=== PATIENT | male | born 1960 | race Caucasian/White ===

== ENCOUNTER → 2018-01-27 12:05 | Outpatient (CLI) | payer MEDICARE, MEDICAID, OTHER, SELFPAY ==
--- NOTE | 2018-01-27 | DI.MRI.S_ITS ---
PROCEDURE: MR LUMBAR SPINE WO CON INDICATIONS: LOW BACK PAIN TECHNIQUE: Noncontrast sagittal T1 spin echo and T2 fast echo, coronal T2, sagittal STIR, axial T1 and T2 fast spin echo through the lumbar spine. In cases with scoliosis, additional coronal T2 fast spin echo may be performed. COMPARISON: [facility], , L-SPINE WITHOUT CONTRAST, 10/31/2013, 11:33. [facility], CR, XR LUMBAR SPINE WITH OLBIQUES PLUS FLEXION EXTENSION, 01/18/2018, 15:36. FINDINGS: Image quality: Excellent. Alignment and Curvature: There are 5 lumbar-type vertebral bodies by plain film. There is mild rightward curvature of the lower lumbar spine. Bone Marrow: Marrow is of normal overall signal. No acute vertebral body compression fractures. There is increased, moderate reactive signal within the endplates adjacent to the L2-L3 and L4-L5 intervertebral discs. Increased, mild reactive signal within the endplates adjacent to the T12-L1, L1-L2, L3-L4, and L5-S1 intervertebral discs. Spinal Cord: Conus medullaris terminates at the mid L1 level. Visualized cord demonstrates normal signal and size. Paraspinous Soft Tissues: No paravertebral masses. L1-L2: Moderate disc desiccation. Mild disc height loss. Mild diffuse disc bulge. Mild bilateral facet hypertrophy. Mild canal stenosis and mild bilateral foraminal stenoses are unchanged. L2-L3: Moderate disc height loss and desiccation. Mild diffuse disc bulge with superimposed broad-based right far lateral protrusion. Mild bilateral facet and ligamentum flavum hypertrophy. Mild epidural lipomatosis. There is increased, severe canal stenosis. There is increased, moderate right and mild left foraminal stenosis. L3-L4: Mild disc height loss. Moderate disc desiccation. Mild diffuse disc bulge/osteophyte. Mild bilateral facet and ligamentum flavum hypertrophy. Mild epidural lipomatosis. Increased, severe canal stenosis. Increased, [id number] bilateral foraminal stenosis. L4-L5: Moderate disc desiccation. Mild diffuse disc bulge/osteophyte with small superimposed broad-based left far lateral protrusion. Moderate bilateral facet hypertrophy. Mild epidural lipomatosis. Increased, mild canal stenosis. Increased, moderate left and mild right foraminal stenosis. L5-S1: Moderate disc height loss and desiccation. Mild diffuse disc bulge. Mild bilateral facet and ligamentum flavum hypertrophy. Mild canal stenosis. Increased, severe bilateral foraminal stenosis with bilateral intraforaminal L5 nerve root flattening. IMPRESSION: 1. Multilevel degenerative disc and facet disease, as well as ligamentum flavum hypertrophy and epidural lipomatosis. 2. Increased severe canal stenoses at L2-L3 and L3-L4. 3. Multilevel foraminal stenoses, worst at L5-S1 bilaterally, where there is bilateral L5 nerve root flattening. Recommend correlation with clinical symptoms to ascertain relevance of this finding. Dictated by: Lazaro Bales M.D. on 01/27/2018 at 13:45 Approved by: Lazaro Bales M.D. on 01/27/2018 at 13:50
== END ==
PROVIDERS: PCP Internal Medicine; Visit Provider Physical Medicine & Rehabilitation Pain Medicine
DX: M54.5 Low back pain (principal); M51.36 Other intervertebral disc degeneration, lumbar region; M51.37 Other intervertebral disc degeneration, lumbosacral region; M48.061 Spinal stenosis, lumbar region without neurogenic claudication; M48.07 Spinal stenosis, lumbosacral region; E88.2 Lipomatosis, not elsewhere classified
CPT/HCPCS: 72148

== ENCOUNTER 2018-06-14 12:00 | Outpatient (RCR) | payer MEDICARE, MEDICAID, OTHER, SELFPAY ==
--- NOTE | 2018-03-22 15:23 | PT.OIE ---
Current Diagnoses Spinal stenosis, lumbar region with neurogenic claudication (03/21/18) Other intervertebral disc degeneration, lumbar region (03/21/18) Radiculopathy, lumbosacral region (03/21/18) Provider Visit Care Team Role Provider Type Eneida Braden MD Primary Care Provider Physician Specialty: Internal Medicine Address: [address] [place] [address], [id number] Email: Antony Yepez MD Attending Provider Physician Specialty: Physical Medicine and Rehab Address: [address] [place] [address], [id number] Email: Physical Therapy Initial Evaluation PT-OP-A Visit Information Start: 03/22/18 14:52 Freq: Status: Active Protocol: Document 03/21/18 13:00 [facility] (Rec: 03/22/18 15:22 [facility] [email or web address]) Out-Patient Physical Therapy Visit Information Visit Information Visit Type Initial Evaluation Visit Note 57 year old male with chronic history of back pain that pt reports started when he was 40 years old with insidiuos onset and heavy manual labor. Currently he rates his pain as 5/10 with radiating pain downt he left LE to his knee Visit Start Time 13:00 Visit Stop Time 13:45 Total Visit Minutes 45 Visit Number 1 Evaluation Information Evaluation Date 03/21/18 PT-OP-B Current Condition Start: 03/22/18 14:52 Freq: Status: Active Protocol: Document 03/21/18 13:00 [facility] (Rec: 03/22/18 15:22 [facility] [email or web address]) Current Condition History of Current Condition Onset Date age 40 Current Complaints LBP and left sided leg pain to the knee History of Current Condition 57 year old male with chronic history of back pain that pt reports started when he was 40 years old with insidiuos onset and heavy manual labor. Currently he rates his pain as 5/10 with radiating pain downt he left LE to his knee. Tavares has a history of congestive heart failure, depression, dizziness, hernia, shortness of breath. He is currently a smoker. He is not currently working Prior Treatments and Tests MRI and X-rays have been taken showing Lumbar degenerative disc disease, lumbosacral radiculopathy, spinal stenosis of lumbar region with neurogenic claudication Treatment Goals Patient/Caregiver Goals to reduce pain levels Prior Functional Status Baseline Function- ADL's Independent Baseline Function- Mobility Independent Baseline Function- Other pain is increased with walking and prevents him from walking lntermediate distances, pain prevents Tavares from sitting greater than 1 hour Current Functional Impairments (Reported) Functional Limitations- Mobility/Gait pain with walking intermediate distances Functional Limitations- Recreation/ unable to continue with Hobbies martial arts, Functional Limitations- Other sitting increases pain PT-OP-F Manual Assessment Start: 03/22/18 14:52 Freq: Status: Active Protocol: Document 03/21/18 13:00 [facility] (Rec: 03/22/18 15:22 [facility] [email or web address]) Manual Assessments Soft Tissue Assessment Soft Tissue Mobility Assessment lumbar paraspinal guarding and muscle spasm left greater than right piriformis tightness PT-OP-J Posture/Palpation/Skin Start: 03/22/18 14:52 Freq: Status: Active Protocol: Document 03/21/18 13:00 [facility] (Rec: 03/22/18 15:22 [facility] [email or web address]) Posture Evaluation Position Standing Evaluation View Posterior Comments Posture Comments The patient stands with a forward lean and is shifted to the left in standing, he has visable muscle guarding in his lumbar paraspinals in standing Palpation Assessment Location Two Palpation Location piriformis Palpation Findings Soft Tissue Tightness Spasm Tenderness Palpation Details Left greater than right piriformis tightness and spasm One Palpation Location low back paraspinals Palpation Findings Soft Tissue Tightness Spasm Muscle Guarding Tenderness PT-OP-K Range of Motion Start: 03/22/18 14:52 Freq: Status: Active Protocol: Document 03/21/18 13:00 [facility] (Rec: 03/22/18 15:22 [facility] [email or web address]) Lumbar Spine Range of Motion Lumbar Spine Active Testing Position Standing Flexion 80 Extension 5 Rotation Left 20 Rotation Right 25 Lateral Flexion Left 10 Lateral Flexion Right 15 ROM Limitations Soft Tissue Tightness Pain Comments extension increases c/o pain PT-OP-L Special Tests Start: 03/22/18 14:52 Freq: Status: Active Protocol: Document 03/21/18 13:00 [facility] (Rec: 03/22/18 15:22 [facility] [email or web address]) Special Tests Neural Special Tests- Lower Body Other- 1 Test Results + SLump test L Sciatic Nerve Tension Test Results SLR + Comments + SLR test L PT-OP-M Strength Start: 03/22/18 15:22 Freq: Status: Active Protocol: Document 03/22/18 15:22 [facility] (Rec: 03/22/18 15:23 [facility] [email or web address]) Trunk Strength Trunk Manual Muscle Testing Core Stabilization decreased ability to activate the core musculature, + ASLR test Hip Strength Hip Manual Muscle Testing Right Abduction 4 Good Left Abduction 4 Good PT-OP-Q Treatments Start: 03/22/18 14:52 Freq: Status: Active Protocol: Document 03/21/18 13:00 [facility] (Rec: 03/22/18 15:22 [facility] [email or web address]) Therapeutic Exercises Supine Exercises 1 Supine Exercise Name pt given a home program of SKTC, Hamstring stretch, figure 4 stretch Other Exercises 1 Other Exercise Name jag pose PT-OP-T Assessment and Plan Start: 03/22/18 14:52 Freq: Status: Active Protocol: Document 03/21/18 13:00 [facility] (Rec: 03/22/18 15:22 [facility] [email or web address]) Physical Therapy Assessment Rehab Potential Rehabilitation Potential Fair Evaluation Complexity Number of Personal Factors/Comorbidities 0 Number of Body Systems Impaired 1-2 Clinical Presentation at Evaluation Stable Impairments Impairments Activity Tolerance Functional Activities Functional Mobility Gait Pain Posture ROM Soft Tissue Mobility Strength Tone Goals Four Impairment poor postural habits contributing to LBP Short Term Goal (STG) Tavares is educated on postural positioning that will decrease strain to the low back STG Duration 6 weeks Three Impairment + neurological tests (+ slump, + SLR L) Skilled Nursing Goal (LTG) Tavares reports decreased c/o radicular symptoms down his leg, he has a negative slump and SLR LTG Duration 8 weeks Two Impairment LBP and left sided leg pain rated 5/10 Skilled Nursing Goal (LTG) With a home exercise program and a course of Physical therapy Tavares is able to reduce his pain by 2-3 points on the pain scale LTG Duration 8 weeks One Impairment Tavares lacks a home exercise program for spinal health Short Term Goal (STG) Tavares is educated in a home flexibility program and stabilization program for the lumbar spine STG Duration 6 weeks Assessment Summary Assessment Tavares presents to physical therapy today with signs and symptoms of LBP and left LE radicular symptoms. He is a smoker and wore his sunglasses the full treatment so it was difficult to get a sense of when pain was increased with tests. He had pain reproduced with mosts test performed today. He did have + slump and + SLR test on the left. He stands in a forward lean position and is shifted to the left. He is weak in his core musculature and has tightness of the hip muscles, especially the piriformis and hamstrings. He needed to take frequent breaks during the evaluation as he noted he needed to rest and was short of breath. He was seen for a evaluation only today per his insurance. His treatment will include HEP, ROM and stretching exercises, and strengthening exercises. Physical Therapy Plan Frequency and Duration Frequency of Treatment 2x/Week Duration of Treatment 8 Plan of Care Start Date 03/21/18 Plan of Care End Date 05/16/18 Therapeutic Interventions Therapeutic Interventions Home Exercise Program Neuromuscular Re-education Self-Care/Home Management Therapeutic Exercises
--- NOTE | 2018-04-13 12:47 | PT.OTN ---
Current Diagnoses Spinal stenosis, lumbar region with neurogenic claudication (04/13/18) Other intervertebral disc degeneration, lumbar region (04/13/18) Radiculopathy, lumbosacral region (04/13/18) Physical Therapy Treatment Note PT-OP-A Visit Information Start: 03/22/18 14:52 Freq: Status: Active Protocol: Document 04/13/18 12:00 DCW (Rec: 04/13/18 12:46 DCW [id number]) Out-Patient Physical Therapy Visit Information Visit Information Visit Type Treatment Note Visit Start Time 12:00 Visit Stop Time 12:45 Total Visit Minutes 45 Visit Number 2 Number of [employer] Visits 0 Evaluation Information Evaluation Date 03/21/18 PT-OP-B Current Condition Start: 03/22/18 14:52 Freq: Status: Active Protocol: Document 03/21/18 13:00 AM[facility] (Rec: 03/22/18 15:22 [facility] [email or web address]) Current Condition History of Current Condition Onset Date age 40 Current Complaints LBP and left sided leg pain to the knee History of Current Condition 57 year old male with chronic history of back pain that pt reports started when he was 40 years old with insidiuos onset and heavy manual labor. Currently he rates his pain as 5/10 with radiating pain downt he left LE to his knee. Tavares has a history of congestive heart failure, depression, dizziness, hernia, shortness of breath. He is currently a smoker. He is not currently working Prior Treatments and Tests MRI and X-rays have been taken showing Lumbar degenerative disc disease, lumbosacral radiculopathy, spinal stenosis of lumbar region with neurogenic claudication Treatment Goals Patient/Caregiver Goals to reduce pain levels Prior Functional Status Baseline Function- ADL's Independent Baseline Function- Mobility Independent Baseline Function- Other pain is increased with walking and prevents him from walking lntermediate distances, pain prevents Tavares from sitting greater than 1 hour Current Functional Impairments (Reported) Functional Limitations- Mobility/Gait pain with walking intermediate distances Functional Limitations- Recreation/ unable to continue with Hobbies martial arts, Functional Limitations- Other sitting increases pain PT-OP-C Subjective Start: 03/22/18 14:52 Freq: Status: Active Protocol: Document 04/13/18 12:00 DCW (Rec: 04/13/18 12:46 DCW [id number]) OP-PT Subjective Patient Comments Patient Comments Pt reports his back hurts all the time, and everything makes it worse. PT-OP-F Manual Assessment Start: 03/22/18 14:52 Freq: Status: Active Protocol: Document 03/21/18 13:00 [facility] (Rec: 03/22/18 15:22 [facility] [email or web address]) Manual Assessments Soft Tissue Assessment Soft Tissue Mobility Assessment lumbar paraspinal guarding and muscle spasm left greater than right piriformis tightness PT-OP-J Posture/Palpation/Skin Start: 03/22/18 14:52 Freq: Status: Active Protocol: Document 03/21/18 13:00 AMH (Rec: 03/22/18 15:22 [facility] [email or web address]) Posture Evaluation Position Standing Evaluation View Posterior Comments Posture Comments The patient stands with a forward lean and is shifted to the left in standing, he has visable muscle guarding in his lumbar paraspinals in standing Palpation Assessment Location Two Palpation Location piriformis Palpation Findings Soft Tissue Tightness Spasm Tenderness Palpation Details Left greater than right piriformis tightness and spasm One Palpation Location low back paraspinals Palpation Findings Soft Tissue Tightness Spasm Muscle Guarding Tenderness PT-OP-K Range of Motion Start: 03/22/18 14:52 Freq: Status: Active Protocol: Document 03/21/18 13:00 AMH (Rec: 03/22/18 15:22 [facility] [email or web address]) Lumbar Spine Range of Motion Lumbar Spine Active Testing Position Standing Flexion 80 Extension 5 Rotation Left 20 Rotation Right 25 Lateral Flexion Left 10 Lateral Flexion Right 15 ROM Limitations Soft Tissue Tightness Pain Comments extension increases c/o pain PT-OP-L Special Tests Start: 03/22/18 14:52 Freq: Status: Active Protocol: Document 03/21/18 13:00 AMH (Rec: 03/22/18 15:22 [facility] [email or web address]) Special Tests Neural Special Tests- Lower Body Other- 1 Test Results + SLump test L Sciatic Nerve Tension Test Results SLR + Comments + SLR test L PT-OP-M Strength Start: 03/22/18 15:22 Freq: Status: Active Protocol: Document 03/22/18 15:22 AM[facility] (Rec: 03/22/18 15:23 [facility] [email or web address]) Trunk Strength Trunk Manual Muscle Testing Core Stabilization decreased ability to activate the core musculature, + ASLR test Hip Strength Hip Manual Muscle Testing Right Abduction 4 Good Left Abduction 4 Good PT-OP-Q Treatments Start: 03/22/18 14:52 Freq: Status: Active Protocol: Document 04/13/18 12:00 DCW (Rec: 04/13/18 12:46 DCW [id number]) Cardio Equipment Recumbent Bicycle Duration (Minutes) 5 Resistance 3 Seat Position 10 Gym Equipment Therapeutic Ball Trunk Rotation Exercise Details Lumbar trunk rotation Ball Size/Color Green - 65 cm Body Position Sitting Therapeutic Exercises Supine Exercises PPT /c TrA activation Supine Exercise Name PPT /c TrA activation Reps/Minutes 5 hold PPT /c SLR Supine Exercise Name PPT /c SLR Comments stopped due to back pain PPT /c Marching Supine Exercise Name PPT /c Marching 1 Supine Exercise Name Single KtC, HS stretch, Figure -4 Manual Therapy Treatment Soft Tissue Mobilization Quadratus Lumborum Body Location Bilateral QL Mobilization Type Strumming Sustained Pressure Trigger Point Release Body Position Prone Lumbar Paraspinals Body Location Bilateral Lumbar Paraspinals Mobilization Type Strumming Sustained Pressure Trigger Point Release Body Position Prone PT-OP-R Modalities Start: 03/22/18 14:52 Freq: Status: Active Protocol: Document 04/13/18 12:00 DCW (Rec: 04/13/18 12:46 DCW [id number]) Electric Stimulation Electric Stimulation Interferential Current (IFC) Body Location Lumbar Spine Duration (Minutes) 15 Patient Position Sidelying PT-OP-T Assessment and Plan Start: 03/22/18 14:52 Freq: Status: Active Protocol: Document 04/13/18 12:00 DCW (Rec: 04/13/18 12:46 DCW [id number]) Physical Therapy Assessment Impairments Impairments Activity Tolerance Functional Activities Functional Mobility Gait Pain Posture ROM Soft Tissue Mobility Strength Tone Goals Four Impairment poor postural habits contributing to LBP Short Term Goal (STG) Tavares is educated on postural positioning that will decrease strain to the low back STG Duration 6 weeks Three Impairment + neurological tests (+ slump, + SLR L) Prison Goal (LTG) Tavares reports decreased c/o radicular symptoms down his leg, he has a negative slump and SLR LTG Duration 8 weeks Two Impairment LBP and left sided leg pain rated 5/10 Prison Goal (LTG) With a home exercise program and a course of Physical therapy Tavares is able to reduce his pain by 2-3 points on the pain scale LTG Duration 8 weeks One Impairment Tavares lacks a home exercise program for spinal health Short Term Goal (STG) Tavares is educated in a home flexibility program and stabilization program for the lumbar spine STG Duration 6 weeks Assessment Summary Assessment Pt has not yet been consistent with his HEP. Tenderness with some TherEx movements, but overall tolerated treatment well. Physical Therapy Plan Frequency and Duration Frequency of Treatment 2x/Week Duration of Treatment 8 Plan of Care Start Date 03/21/18 Plan of Care End Date 05/16/18 Therapeutic Interventions Therapeutic Interventions Home Exercise Program Neuromuscular Re-education Self-Care/Home Management Therapeutic Exercises Next Visit Focus/Plan Next Note Type Treatment Note Next Visit Plan Core strengthening, STM, Assess effectiveness of E-stim
--- NOTE | 2018-05-18 15:01 | PT.OTRE ---
Current Diagnoses Spinal stenosis, lumbar region with neurogenic claudication (04/13/18) Other intervertebral disc degeneration, lumbar region (04/13/18) Radiculopathy, lumbosacral region (04/13/18) Past Medical History (Last Reviewed 04/12/18 @ 13:25 by Anu Mooney MD) HTN (hypertension) (Chronic) Surgical History (Last Reviewed 04/12/18 @ 13:25 by Anu Mooney MD) H/O umbilical hernia repair (Resolved) Provider Visit Care Team Role Provider Type Eneida Braden MD Primary Care Provider Physician Specialty: Internal Medicine Address: [address] [place] [address], [id number] Email: Antony Yepez MD Attending Provider Physician Specialty: Physical Medicine and Rehab Address: [address] [place] [address], [id number] Email: Physical Therapy Re-Evaluation PT-OP-A Visit Information Start: 03/22/18 14:52 Freq: Status: Active Protocol: Document 05/18/18 13:50 HH (Rec: 05/18/18 15:00 HH [email or web address]) Out-Patient Physical Therapy Visit Information Visit Information Visit Type Treatment Note Visit Note Reeval today. pt have not seen PT since 04/13/18 Visit Start Time 13:50 Visit Stop Time 14:45 Total Visit Minutes 55 Visit Number 3 Number of SHANK PAPERER Visits 0 PT-OP-B Current Condition Start: 03/22/18 14:52 Freq: Status: Active Protocol: Document 03/21/18 13:00 [facility] (Rec: 03/22/18 15:22 [facility] [email or web address]) Current Condition History of Current Condition Onset Date age 40 Current Complaints LBP and left sided leg pain to the knee History of Current Condition 57 year old male with chronic history of back pain that pt reports started when he was 40 years old with insidiuos onset and heavy manual labor. Currently he rates his pain as 5/10 with radiating pain downt he left LE to his knee. Tavares has a history of congestive heart failure, depression, dizziness, hernia, shortness of breath. He is currently a smoker. He is not currently working Prior Treatments and Tests MRI and X-rays have been taken showing Lumbar degenerative disc disease, lumbosacral radiculopathy, spinal stenosis of lumbar region with neurogenic claudication Treatment Goals Patient/Caregiver Goals to reduce pain levels Prior Functional Status Baseline Function- ADL's Independent Baseline Function- Mobility Independent Baseline Function- Other pain is increased with walking and prevents him from walking lntermediate distances, pain prevents Tavares from sitting greater than 1 hour Current Functional Impairments (Reported) Functional Limitations- Mobility/Gait pain with walking intermediate distances Functional Limitations- Recreation/ unable to continue with Hobbies martial arts, Functional Limitations- Other sitting increases pain PT-OP-C Subjective Start: 03/22/18 14:52 Freq: Status: Active Protocol: Document 05/18/18 13:50 HH (Rec: 05/18/18 15:00 HH [email or web address]) OP-PT Subjective Patient Comments Patient Comments LBP stays 6/10 L>R and worse while bending over and carrying grocery/ backpack. It will shoot down to my back of L leg PT-OP-F Manual Assessment Start: 03/22/18 14:52 Freq: Status: Active Protocol: Document 03/21/18 13:00 [facility] (Rec: 03/22/18 15:22 [facility] [email or web address]) Manual Assessments Soft Tissue Assessment Soft Tissue Mobility Assessment lumbar paraspinal guarding and muscle spasm left greater than right piriformis tightness PT-OP-J Posture/Palpation/Skin Start: 03/22/18 14:52 Freq: Status: Active Protocol: Document 03/21/18 13:00 [facility] (Rec: 03/22/18 15:22 [facility] [email or web address]) Posture Evaluation Position Standing Evaluation View Posterior Comments Posture Comments The patient stands with a forward lean and is shifted to the left in standing, he has visable muscle guarding in his lumbar paraspinals in standing Palpation Assessment Location Two Palpation Location piriformis Palpation Findings Soft Tissue Tightness Spasm Tenderness Palpation Details Left greater than right piriformis tightness and spasm One Palpation Location low back paraspinals Palpation Findings Soft Tissue Tightness Spasm Muscle Guarding Tenderness PT-OP-K Range of Motion Start: 03/22/18 14:52 Freq: Status: Active Protocol: Document 05/18/18 13:50 HH (Rec: 05/18/18 15:00 HH [email or web address]) Lumbar Spine Range of Motion Lumbar Spine Active Percentage Testing Position Standing Flexion 80 Extension 5 Rotation Left 40 Rotation Right 40 Lateral Flexion Left 20 Lateral Flexion Right 20 ROM Limitations Soft Tissue Tightness Pain Comments extension increase pain and shooting pain to LE. ext + lateral flexion also increase pain L>R PT-OP-L Special Tests Start: 03/22/18 14:52 Freq: Status: Active Protocol: Document 05/18/18 13:50 HH (Rec: 05/18/18 15:00 HH [email or web address]) Special Tests Lumbar Spine Special Tests Standing Flexion Test Results -ve Comments stretching sensation facet joint syndrome test Test Results trunk extension Comments shooting pain to LE, L>R Straight Leg Raise Test Results Bilateral +ve Comments at 70 degrees with back pain PT-OP-M Strength Start: 03/22/18 15:22 Freq: Status: Active Protocol: Document 03/22/18 15:22 [facility] (Rec: 03/22/18 15:23 [facility] [email or web address]) Trunk Strength Trunk Manual Muscle Testing Core Stabilization decreased ability to activate the core musculature, + ASLR test Hip Strength Hip Manual Muscle Testing Right Abduction 4 Good Left Abduction 4 Good PT-OP-Q Treatments Start: 03/22/18 14:52 Freq: Status: Active Protocol: Document 05/18/18 13:50 HH (Rec: 05/18/18 15:00 HH [email or web address]) Therapeutic Exercises Sitting Exercises seated pelvic tilt Side bilateral Equipment Used green therapy ball Reps/Minutes 20 Standing Exercises standing hip hinge hold Equipment Used PVC bar Reps/Minutes 10 Comments neutral spine with knee bent. standing flexion with DB hold Equipment Used 10lbs DB Comments standing flexion , butt against wall Other Exercises child pose + prone extension Reps/Minutes 20 Comments with deep brething cat camel Reps/Minutes 20 Comments with deep breathing Manual Therapy Treatment Soft Tissue Mobilization Lumbar Paraspinals Body Location Bilateral Lumbar Paraspinals Mobilization Type Strumming Sustained Pressure Trigger Point Release Body Position Prone Comments with heavy bolster due to intolerance of pressure from PT's hands PT-OP-R Modalities Start: 03/22/18 14:52 Freq: Status: Active Protocol: Document 04/13/18 12:00 DCW (Rec: 04/13/18 12:46 DCW [id number]) Electric Stimulation Electric Stimulation Interferential Current (IFC) Body Location Lumbar Spine Duration (Minutes) 15 Patient Position Sidelying PT-OP-T Assessment and Plan Start: 03/22/18 14:52 Freq: Status: Active Protocol: Document 05/18/18 13:50 HH (Rec: 05/18/18 15:00 HH [email or web address]) Physical Therapy Assessment Goals pain Impairment pain increased with bending over/ grocery shop Membership Coordinator Goal (LTG) Pain free with bending over/ carry grocery shop LTG Duration 12 weeks Four Impairment poor postural habits contributing to LBP Short Term Goal (STG) Tavares is educated on postural positioning that will decrease strain to the low back STG Duration 6 weeks Three Impairment + neurological tests (+ slump, + SLR B, facet joint syndrome ) Membership Coordinator Goal (LTG) Tavares reports decreased c/o radicular symptoms down his leg during extension, he has a negative slump and SLR and facet syndrome test LTG Duration 12 weeks Two Impairment LBP and left sided leg pain rated 5/10 Prison Goal (LTG) With a home exercise program and a course of Physical therapy Tavares is able to reduce his pain by 2-3 points on the pain scale LTG Duration 8 weeks One Impairment Tavares lacks a home exercise program for spinal health Short Term Goal (STG) Tavares is educated in a home flexibility program and stabilization program for the lumbar spine STG Duration 6 weeks Progress Towards Goals Progress Towards Goals Slow Progress due to Attendance Issues Slow Progress due to Medical Issues Slow Progress due to Noncompliance Slow Progress - Other Assessment Summary Assessment Pt has not yet been consistent with HEP and appts. Upon reassessment today, pt c/o increased LBP and radiating pain during trunk extension and lateral flexion. He also has very poor L/S segmental control and pelvic control. Today's tx focused on L/S and pelvic control, segmental ROM training and isometric L/S strengthening. Pt did not c/o increased pain during session and able to extend his trunk WFL without radiating pain at the end of session Physical Therapy Plan Frequency and Duration Frequency of Treatment 2x/Week Duration of Treatment 12 weeks Plan of Care Start Date 05/18/18 Plan of Care End Date 08/18/18 Therapeutic Interventions Therapeutic Interventions Home Exercise Program Neuromuscular Re-education Self-Care/Home Management Therapeutic Exercises Next Visit Focus/Plan Next Note Type Treatment Note Next Visit Plan reassess catcamel and child pose HEP cont segmental ROM ex, iso back strengthening.
--- NOTE | 2018-05-18 15:01 | PT.OPPOC ---
Current Diagnoses Spinal stenosis, lumbar region with neurogenic claudication (04/13/18) Other intervertebral disc degeneration, lumbar region (04/13/18) Radiculopathy, lumbosacral region (04/13/18) Provider Visit Care Team Role Provider Type Eneida Braden MD Primary Care Provider Physician Specialty: Internal Medicine Address: [address] [place] [address], [phone] Email: Antony Yepez MD Attending Provider Physician Specialty: Physical Medicine and Rehab Address: [address] [place] [address], [phone] Email: Plan Of Care PT-OP-T Assessment and Plan Start: 03/22/18 14:52 Freq: Status: Active Protocol: Document 05/18/18 13:50 HH (Rec: 05/18/18 15:00 HH [email or web address]) Physical Therapy Assessment Goals pain Impairment pain increased with bending over/ grocery shop Prison Goal (LTG) Pain free with bending over/ carry grocery shop LTG Duration 12 weeks Four Impairment poor postural habits contributing to LBP Short Term Goal (STG) Tavares is educated on postural positioning that will decrease strain to the low back STG Duration 6 weeks Three Impairment + neurological tests (+ slump, + SLR B, facet joint syndrome ) Prison Goal (LTG) Tavares reports decreased c/o radicular symptoms down his leg during extension, he has a negative slump and SLR and facet syndrome test LTG Duration 12 weeks Two Impairment LBP and left sided leg pain rated 5/10 Auto Transmission Mechanic Goal (LTG) With a home exercise program and a course of Physical therapy Tavares is able to reduce his pain by 2-3 points on the pain scale LTG Duration 8 weeks One Impairment Tavares lacks a home exercise program for spinal health Short Term Goal (STG) Tavares is educated in a home flexibility program and stabilization program for the lumbar spine STG Duration 6 weeks Progress Towards Goals Progress Towards Goals Slow Progress due to Attendance Issues Slow Progress due to Medical Issues Slow Progress due to Noncompliance Slow Progress - Other Assessment Summary Assessment Pt has not yet been consistent with HEP and appts. Upon reassessment today, pt c/o increased LBP and radiating pain during trunk extension and lateral flexion. He also has very poor L/S segmental control and pelvic control. Today's tx focused on L/S and pelvic control, segmental ROM training and isometric L/S strengthening. Pt did not c/o increased pain during session and able to extend his trunk WFL without radiating pain at the end of session Physical Therapy Plan Frequency and Duration Frequency of Treatment 2x/Week Duration of Treatment 12 weeks Plan of Care Start Date 05/18/18 Plan of Care End Date 08/18/18 Therapeutic Interventions Therapeutic Interventions Home Exercise Program Neuromuscular Re-education Self-Care/Home Management Therapeutic Exercises Next Visit Focus/Plan Next Note Type Treatment Note Next Visit Plan reassess catcamel and child pose HEP cont segmental ROM ex, iso back strengthening. Plan of Care Dates Plan of Care Start Date 05/18/18 Plan of Care End Date 08/18/18 Please Sign and Return: I have reviewed this Plan of Care and certify that the skilled therapy services above are required to meet the patient?s needs. Physician Signature Date Printed Name and Credentials Clinical Instructor Signature Printed Name and Credentials
--- NOTE | 2018-06-07 12:43 | PT.OTN ---
Current Diagnoses Spinal stenosis, lumbar region with neurogenic claudication (06/07/18) Other intervertebral disc degeneration, lumbar region (06/07/18) Radiculopathy, lumbosacral region (06/07/18) Physical Therapy Treatment Note PT-OP-A Visit Information Start: 03/22/18 14:52 Freq: Status: Active Protocol: Document 06/07/18 12:00 DCW (Rec: 06/07/18 12:42 DCW [id number]) Out-Patient Physical Therapy Visit Information Visit Information Visit Type Treatment Note Visit Start Time 12:00 Visit Stop Time 12:55 Total Visit Minutes 55 Visit Number 4 Number of EQUIPMENT MANAGER Visits 0 Evaluation Information Evaluation Date 03/21/18 PT-OP-B Current Condition Start: 03/22/18 14:52 Freq: Status: Active Protocol: Document 03/21/18 13:00 [facility] (Rec: 03/22/18 15:22 [facility] [email or web address]) Current Condition History of Current Condition Onset Date age 40 Current Complaints LBP and left sided leg pain to the knee History of Current Condition 57 year old male with chronic history of back pain that pt reports started when he was 40 years old with insidiuos onset and heavy manual labor. Currently he rates his pain as 5/10 with radiating pain downt he left LE to his knee. Tavares has a history of congestive heart failure, depression, dizziness, hernia, shortness of breath. He is currently a smoker. He is not currently working Prior Treatments and Tests MRI and X-rays have been taken showing Lumbar degenerative disc disease, lumbosacral radiculopathy, spinal stenosis of lumbar region with neurogenic claudication Treatment Goals Patient/Caregiver Goals to reduce pain levels Prior Functional Status Baseline Function- ADL's Independent Baseline Function- Mobility Independent Baseline Function- Other pain is increased with walking and prevents him from walking lntermediate distances, pain prevents Tavares from sitting greater than 1 hour Current Functional Impairments (Reported) Functional Limitations- Mobility/Gait pain with walking intermediate distances Functional Limitations- Recreation/ unable to continue with Hobbies martial arts, Functional Limitations- Other sitting increases pain PT-OP-C Subjective Start: 03/22/18 14:52 Freq: Status: Active Protocol: Document 06/07/18 12:00 DCW (Rec: 06/07/18 12:42 DCW [id number]) OP-PT Subjective Patient Comments Patient Comments Pt cancelled his last visit due to ankle, shoulder, and back pain following a fall from his porch. Pt reports he was seen afterward, and had no significant injuries, just lots of bumps and bruises. Pt reports his ankle is still fairly sore, and I know it didn't help my back pain. PT-OP-F Manual Assessment Start: 03/22/18 14:52 Freq: Status: Active Protocol: Document 03/21/18 13:00 [facility] (Rec: 03/22/18 15:22 [facility] [email or web address]) Manual Assessments Soft Tissue Assessment Soft Tissue Mobility Assessment lumbar paraspinal guarding and muscle spasm left greater than right piriformis tightness PT-OP-J Posture/Palpation/Skin Start: 03/22/18 14:52 Freq: Status: Active Protocol: Document 03/21/18 13:00 [facility] (Rec: 03/22/18 15:22 [facility] [email or web address]) Posture Evaluation Position Standing Evaluation View Posterior Comments Posture Comments The patient stands with a forward lean and is shifted to the left in standing, he has visable muscle guarding in his lumbar paraspinals in standing Palpation Assessment Location Two Palpation Location piriformis Palpation Findings Soft Tissue Tightness Spasm Tenderness Palpation Details Left greater than right piriformis tightness and spasm One Palpation Location low back paraspinals Palpation Findings Soft Tissue Tightness Spasm Muscle Guarding Tenderness PT-OP-K Range of Motion Start: 03/22/18 14:52 Freq: Status: Active Protocol: Document 05/18/18 13:50 HH (Rec: 05/18/18 15:00 HH [email or web address]) Lumbar Spine Range of Motion Lumbar Spine Active Percentage Testing Position Standing Flexion 80 Extension 5 Rotation Left 40 Rotation Right 40 Lateral Flexion Left 20 Lateral Flexion Right 20 ROM Limitations Soft Tissue Tightness Pain Comments extension increase pain and shooting pain to LE. ext + lateral flexion also increase pain L>R PT-OP-L Special Tests Start: 03/22/18 14:52 Freq: Status: Active Protocol: Document 05/18/18 13:50 HH (Rec: 05/18/18 15:00 HH [email or web address]) Special Tests Lumbar Spine Special Tests Standing Flexion Test Results -ve Comments stretching sensation facet joint syndrome test Test Results trunk extension Comments shooting pain to LE, L>R Straight Leg Raise Test Results Bilateral +ve Comments at 70 degrees with back pain PT-OP-M Strength Start: 03/22/18 15:22 Freq: Status: Active Protocol: Document 03/22/18 15:22 [facility] (Rec: 03/22/18 15:23 [facility] [email or web address]) Trunk Strength Trunk Manual Muscle Testing Core Stabilization decreased ability to activate the core musculature, + ASLR test Hip Strength Hip Manual Muscle Testing Right Abduction 4 Good Left Abduction 4 Good PT-OP-Q Treatments Start: 03/22/18 14:52 Freq: Status: Active Protocol: Document 06/07/18 12:00 DCW (Rec: 06/07/18 12:42 DCW [id number]) Cardio Equipment Recumbent Bicycle Duration (Minutes) 5 Resistance 4 Seat Position 10 Gym Equipment Shuttle Recovery Unilateral Squats Resistance 62# Shuttle Recovery Platform Stable Reps/Time TrA contraction Bilateral Squats Resistance 100# Shuttle Recovery Platform Stable Reps/Time TrA contraction Therapeutic Ball Bridging Exercise Details Bridging /c feet on ball Ball Size/Color Red - 55 c, Body Position Supine Trunk Rotation Exercise Details Lumbar trunk rotation Ball Size/Color Red - 55 cm Body Position Supine Therapeutic Exercises Other Exercises Resisted Side-stepping Other Exercise Name Resisted Side-stepping Resistance Green Equipment Used T-band Manual Therapy Treatment Soft Tissue Mobilization Quadratus Lumborum Body Location Bilateral QL Mobilization Type Strumming Sustained Pressure Trigger Point Release Body Position Prone Lumbar Paraspinals Body Location Bilateral Lumbar Paraspinals Mobilization Type Strumming Sustained Pressure Trigger Point Release Body Position Prone PT-OP-R Modalities Start: 03/22/18 14:52 Freq: Status: Active Protocol: Document 06/07/18 12:00 DCW (Rec: 06/07/18 12:43 DCW [id number]) Electric Stimulation Electric Stimulation Interferential Current (IFC) Body Location Lumbar Spine Duration (Minutes) 15 Patient Position Prone Combined With Heat/Cold Hot Pack PT-OP-T Assessment and Plan Start: 03/22/18 14:52 Freq: Status: Active Protocol: Document 06/07/18 12:00 DCW (Rec: 06/07/18 12:42 DCW [id number]) Physical Therapy Assessment Impairments Impairments Activity Tolerance Functional Activities Functional Mobility Gait Pain Posture ROM Soft Tissue Mobility Strength Tone Goals pain Impairment pain increased with bending over/ grocery shop Mcc Goal (LTG) Pain free with bending over/ carry grocery shop LTG Duration 12 weeks Four Impairment poor postural habits contributing to LBP Short Term Goal (STG) Tavares is educated on postural positioning that will decrease strain to the low back STG Duration 6 weeks Three Impairment + neurological tests (+ slump, + SLR L) Mcc Goal (LTG) Tavares reports decreased c/o radicular symptoms down his leg, he has a negative slump and SLR LTG Duration 8 weeks Two Impairment LBP and left sided leg pain rated 5/10 Natural Resources Manager Goal (LTG) With a home exercise program and a course of Physical therapy Tavares is able to reduce his pain by 2-3 points on the pain scale LTG Duration 8 weeks One Impairment Tavares lacks a home exercise program for spinal health Short Term Goal (STG) Tavares is educated in a home flexibility program and stabilization program for the lumbar spine STG Duration 6 weeks Assessment Summary Assessment Pt had a bit of a setback with his fall from his porch, and has overall increased tenderness in his back. Pt tolerated treatment well, however, and reports he is motivated to keep up his program in an effort to get better. Physical Therapy Plan Frequency and Duration Frequency of Treatment 2x/Week Duration of Treatment 12 weeks Plan of Care Start Date 05/18/18 Plan of Care End Date 08/18/18 Therapeutic Interventions Therapeutic Interventions Home Exercise Program Neuromuscular Re-education Self-Care/Home Management Therapeutic Exercises Next Visit Focus/Plan Next Note Type Treatment Note Next Visit Plan reassess catcamel and child pose HEP cont segmental ROM ex, iso back strengthening.
--- NOTE | 2018-06-14 12:00 | PT.OTN ---
Current Diagnoses Spinal stenosis, lumbar region with neurogenic claudication (06/14/18) Other intervertebral disc degeneration, lumbar region (06/14/18) Radiculopathy, lumbosacral region (06/14/18) Physical Therapy Treatment Note PT-OP-A Visit Information Start: 03/22/18 14:52 Freq: Status: Active Protocol: Document 06/14/18 12:00 RCC (Rec: 06/14/18 13:07 RCC [email or web address]) Out-Patient Physical Therapy Visit Information Visit Information Visit Type Treatment Note Visit Start Time 12:00 Visit Stop Time 12:50 Total Visit Minutes 50 Visit Number 5 Number of [employer] PROGRAMMER Visits 0 Evaluation Information Evaluation Date 03/21/18 PT-OP-B Current Condition Start: 03/22/18 14:52 Freq: Status: Active Protocol: Document 03/21/18 13:00 [facility] (Rec: 03/22/18 15:22 [facility] [email or web address]) Current Condition History of Current Condition Onset Date age 40 Current Complaints LBP and left sided leg pain to the knee History of Current Condition 57 year old male with chronic history of back pain that pt reports started when he was 40 years old with insidiuos onset and heavy manual labor. Currently he rates his pain as 5/10 with radiating pain downt he left LE to his knee. Tavares has a history of congestive heart failure, depression, dizziness, hernia, shortness of breath. He is currently a smoker. He is not currently working Prior Treatments and Tests MRI and X-rays have been taken showing Lumbar degenerative disc disease, lumbosacral radiculopathy, spinal stenosis of lumbar region with neurogenic claudication Treatment Goals Patient/Caregiver Goals to reduce pain levels Prior Functional Status Baseline Function- ADL's Independent Baseline Function- Mobility Independent Baseline Function- Other pain is increased with walking and prevents him from walking lntermediate distances, pain prevents Tavares from sitting greater than 1 hour Current Functional Impairments (Reported) Functional Limitations- Mobility/Gait pain with walking intermediate distances Functional Limitations- Recreation/ unable to continue with Hobbies martial arts, Functional Limitations- Other sitting increases pain PT-OP-C Subjective Start: 03/22/18 14:52 Freq: Status: Active Protocol: Document 06/14/18 12:00 RCC (Rec: 06/14/18 13:07 RCC [email or web address]) OP-PT Subjective Patient Comments Patient Comments Pt notes that his back is still more painful after his fall off of the porch. PT-OP-F Manual Assessment Start: 03/22/18 14:52 Freq: Status: Active Protocol: Document 03/21/18 13:00 [facility] (Rec: 03/22/18 15:22 [facility] [email or web address]) Manual Assessments Soft Tissue Assessment Soft Tissue Mobility Assessment lumbar paraspinal guarding and muscle spasm left greater than right piriformis tightness PT-OP-J Posture/Palpation/Skin Start: 03/22/18 14:52 Freq: Status: Active Protocol: Document 03/21/18 13:00 [facility] (Rec: 03/22/18 15:22 [facility] [email or web address]) Posture Evaluation Position Standing Evaluation View Posterior Comments Posture Comments The patient stands with a forward lean and is shifted to the left in standing, he has visable muscle guarding in his lumbar paraspinals in standing Palpation Assessment Location Two Palpation Location piriformis Palpation Findings Soft Tissue Tightness Spasm Tenderness Palpation Details Left greater than right piriformis tightness and spasm One Palpation Location low back paraspinals Palpation Findings Soft Tissue Tightness Spasm Muscle Guarding Tenderness PT-OP-K Range of Motion Start: 03/22/18 14:52 Freq: Status: Active Protocol: Document 05/18/18 13:50 HH (Rec: 05/18/18 15:00 HH [email or web address]) Lumbar Spine Range of Motion Lumbar Spine Active Percentage Testing Position Standing Flexion 80 Extension 5 Rotation Left 40 Rotation Right 40 Lateral Flexion Left 20 Lateral Flexion Right 20 ROM Limitations Soft Tissue Tightness Pain Comments extension increase pain and shooting pain to LE. ext + lateral flexion also increase pain L>R PT-OP-L Special Tests Start: 03/22/18 14:52 Freq: Status: Active Protocol: Document 05/18/18 13:50 HH (Rec: 05/18/18 15:00 HH [email or web address]) Special Tests Lumbar Spine Special Tests Standing Flexion Test Results -ve Comments stretching sensation facet joint syndrome test Test Results trunk extension Comments shooting pain to LE, L>R Straight Leg Raise Test Results Bilateral +ve Comments at 70 degrees with back pain PT-OP-M Strength Start: 03/22/18 15:22 Freq: Status: Active Protocol: Document 03/22/18 15:22 [facility] (Rec: 03/22/18 15:23 [facility] [email or web address]) Trunk Strength Trunk Manual Muscle Testing Core Stabilization decreased ability to activate the core musculature, + ASLR test Hip Strength Hip Manual Muscle Testing Right Abduction 4 Good Left Abduction 4 Good PT-OP-Q Treatments Start: 03/22/18 14:52 Freq: Status: Active Protocol: Document 06/14/18 12:00 RCC (Rec: 06/14/18 13:07 RCC [email or web address]) Cardio Equipment Recumbent Bicycle Duration (Minutes) 5 Resistance 4 Seat Position 10 Gym Equipment Shuttle Recovery Unilateral Squats Resistance 62# Shuttle Recovery Platform Stable Reps/Time TrA contraction Bilateral Squats Resistance 100# Shuttle Recovery Platform Stable Reps/Time TrA contraction Therapeutic Exercises Sidelying Exercises clamshells Side left Reps/Minutes x10 Manual Therapy Treatment Soft Tissue Mobilization Quadratus Lumborum Body Location left QL Mobilization Type Strumming Sustained Pressure Trigger Point Release Body Position Sidelying Lumbar Paraspinals Body Location left Lumbar Paraspinals Mobilization Type Strumming Sustained Pressure Trigger Point Release Body Position Sidelying Manual Techniques lumbar Body Location lumbar Body Position Hooklying Reps/Duration 3 min Comments 30 on/30 off with belt PT-OP-R Modalities Start: 03/22/18 14:52 Freq: Status: Active Protocol: Document 06/14/18 12:00 [facility] (Rec: 06/14/18 13:07 [facility] [email or web address]) Electric Stimulation Electric Stimulation Interferential Current (IFC) Body Location Lumbar Spine Duration (Minutes) 15 Patient Position Prone Combined With Heat/Cold Hot Pack PT-OP-T Assessment and Plan Start: 03/22/18 14:52 Freq: Status: Active Protocol: Document 06/14/18 12:00 [facility] (Rec: 06/14/18 13:07 [facility] [email or web address]) Physical Therapy Assessment Assessment Summary Assessment Pt without c/o pain during clamshells on the L and able to perform with good pelvic control (added to HEP). Overall, pt appears to still have increased pain and soreness s/p fall off of porch , but slowly improving. Physical Therapy Plan Frequency and Duration Frequency of Treatment 2x/Week Duration of Treatment 12 weeks Plan of Care Start Date 05/18/18 Plan of Care End Date 08/18/18 Next Visit Focus/Plan Next Note Type Treatment Note Next Visit Plan progress back to HEP activities if pain if improving. Assess tolerance to manual therapy and light traction
--- NOTE | 2018-06-21 12:11 | PT.OPDS ---
Current Diagnoses Spinal stenosis, lumbar region with neurogenic claudication (06/14/18) Other intervertebral disc degeneration, lumbar region (06/14/18) Radiculopathy, lumbosacral region (06/14/18) Provider Visit Care Team Role Provider Type Eneida Braden MD Primary Care Provider Physician Specialty: Internal Medicine Address: [address] [place] [address], [id number] Email: Antony Yepez MD Attending Provider Physician Specialty: Physical Medicine and Rehab Address: [address] [place] [address], [id number] Email: Visit Number Visit Number 5 Discharge Summary PT-OP-B Current Condition Start: 03/22/18 14:52 Freq: Status: Active Protocol: Document 03/21/18 13:00 [facility] (Rec: 03/22/18 15:22 [facility] [email or web address]) Current Condition History of Current Condition Onset Date age 40 Current Complaints LBP and left sided leg pain to the knee History of Current Condition 57 year old male with chronic history of back pain that pt reports started when he was 40 years old with insidiuos onset and heavy manual labor. Currently he rates his pain as 5/10 with radiating pain downt he left LE to his knee. Tavares has a history of congestive heart failure, depression, dizziness, hernia, shortness of breath. He is currently a smoker. He is not currently working Prior Treatments and Tests MRI and X-rays have been taken showing Lumbar degenerative disc disease, lumbosacral radiculopathy, spinal stenosis of lumbar region with neurogenic claudication Treatment Goals Patient/Caregiver Goals to reduce pain levels Prior Functional Status Baseline Function- ADL's Independent Baseline Function- Mobility Independent Baseline Function- Other pain is increased with walking and prevents him from walking lntermediate distances, pain prevents Tavares from sitting greater than 1 hour Current Functional Impairments (Reported) Functional Limitations- Mobility/Gait pain with walking intermediate distances Functional Limitations- Recreation/ unable to continue with Hobbies martial arts, Functional Limitations- Other sitting increases pain PT-OP-F Manual Assessment Start: 03/22/18 14:52 Freq: Status: Active Protocol: Document 03/21/18 13:00 [facility] (Rec: 03/22/18 15:22 [facility] [email or web address]) Manual Assessments Soft Tissue Assessment Soft Tissue Mobility Assessment lumbar paraspinal guarding and muscle spasm left greater than right piriformis tightness PT-OP-J Posture/Palpation/Skin Start: 03/22/18 14:52 Freq: Status: Active Protocol: Document 03/21/18 13:00 [facility] (Rec: 03/22/18 15:22 [facility] [email or web address]) Posture Evaluation Position Standing Evaluation View Posterior Comments Posture Comments The patient stands with a forward lean and is shifted to the left in standing, he has visable muscle guarding in his lumbar paraspinals in standing Palpation Assessment Location Two Palpation Location piriformis Palpation Findings Soft Tissue Tightness Spasm Tenderness Palpation Details Left greater than right piriformis tightness and spasm One Palpation Location low back paraspinals Palpation Findings Soft Tissue Tightness Spasm Muscle Guarding Tenderness PT-OP-K Range of Motion Start: 03/22/18 14:52 Freq: Status: Active Protocol: Document 05/18/18 13:50 HH (Rec: 05/18/18 15:00 [email or web address]) Lumbar Spine Range of Motion Lumbar Spine Active Percentage Testing Position Standing Flexion 80 Extension 5 Rotation Left 40 Rotation Right 40 Lateral Flexion Left 20 Lateral Flexion Right 20 ROM Limitations Soft Tissue Tightness Pain Comments extension increase pain and shooting pain to LE. ext + lateral flexion also increase pain L>R PT-OP-L Special Tests Start: 03/22/18 14:52 Freq: Status: Active Protocol: Document 05/18/18 13:50 HH (Rec: 05/18/18 15:00 HH [email or web address]) Special Tests Lumbar Spine Special Tests Standing Flexion Test Results -ve Comments stretching sensation facet joint syndrome test Test Results trunk extension Comments shooting pain to LE, L>R Straight Leg Raise Test Results Bilateral +ve Comments at 70 degrees with back pain PT-OP-M Strength Start: 03/22/18 15:22 Freq: Status: Active Protocol: Document 03/22/18 15:22 [facility] (Rec: 03/22/18 15:23 [facility] [email or web address]) Trunk Strength Trunk Manual Muscle Testing Core Stabilization decreased ability to activate the core musculature, + ASLR test Hip Strength Hip Manual Muscle Testing Right Abduction 4 Good Left Abduction 4 Good PT-OP-T Assessment and Plan Start: 03/22/18 14:52 Freq: Status: Active Protocol: Document 06/21/18 12:08 DC[facility] (Rec: 06/21/18 12:11 DCW [id number]) Physical Therapy Assessment Assessment Summary Assessment Pt arrived for his appointment today (06/21/18), however admitted that he thinks he should stop coming, as he feels like all of his pain is worsening after therapy, and he is at the point now where he can barely get out of bed in the morning. After discussion, therapist recommended pt return to his PCP to discuss other options. Pt will be discharged from skilled therapy at this time, and will require a new referral in order to return at a later date. Physical Therapy Plan Discharge Physical Therapy Discharge Reasons Patient Request Next Visit Focus/Plan Next Note Type Discharge Summary
== END 2018-07-18 13:01 | disposition home or self-care (01) ==
LOC: PHYS 12:00
PROVIDERS: PCP Internal Medicine; Visit Provider Physical Medicine & Rehabilitation Pain Medicine
DX: M51.36 Other intervertebral disc degeneration, lumbar region (principal); M54.17 Radiculopathy, lumbosacral region; M48.062 Spinal stenosis, lumbar region with neurogenic claudication
CPT/HCPCS: 97014; 97110; 97140; 97161; 97164; G0283

== ENCOUNTER → 2019-04-26 11:09 | Outpatient (CLI) | payer MEDICARE, MEDICAID, SELFPAY ==
[2019-04-26 13:18] LABS: Alanine Aminotransferase 32 IU/L (<50); Albumin 4.2 g/dL (3.5-5.0); Albumin Globulin Ratio 1.1 (1.0-2.8); Alkaline Phosphatase 117 U/L (38-126); Aspartate Aminotransferase 39 IU/L (17-59); Bilirubin Total 0.6 mg/dL (0.2-1.3); Blood Urea Nitrogen 14 mg/dL (9-20); Calcium 9.5 mg/dL (8.4-10.2); Carbon Dioxide 28 mmol/L (22-32); Chloride 99 mmol/L (98-107); Cholesterol 163 mg/dL (140-199); Estimated Glomerular Filt Rate > 60.0 mL/min (>60); Globulin 3.7 g/dL (1.7-4.1); Glucose 104 mg/dL (70-100); HDL Cholesterol 47 mg/dL (40-60); HEMOLYSIS < 15 (0-50); LDL Cholesterol Calculated 101 mg/dL (<100); Potassium 4.6 mmol/L (3.4-5.1); Sodium 136 mmol/L (137-145); Total Protein 7.9 g/dL (6.3-8.2); Triglycerides 73 mg/dL (35-150)
== END ==
PROVIDERS: PCP Internal Medicine; Referring Provider Internal Medicine; Visit Provider Internal Medicine
DX: I10 Essential (primary) hypertension (principal); E78.2 Mixed hyperlipidemia
CPT/HCPCS: 36415; 80053; 80061

== ENCOUNTER → 2020-12-24 07:53 | Outpatient (CLI) | payer MEDICARE, MEDICAID, SELFPAY ==
--- NOTE | 2020-12-24 | DI.ECHO.S_ITS ---
[place] +---------+ Hospital +---------+ : : [address] : : : : [id number] : : : : Phone: [phone] +---------+ Echocardiogram Report + + :Name: JALEN GATES Study Date: 12/24/2020 Height: 75 in : :[facility] ReadingLocation: Weight: 260 lb : : Gender: Male BSA: 2.5 m2 : :: 1960 Age: 60 yrs BP: 115/83 mmHg: :Reason For Study: DILATED CARDIOMYOPATHY : :Ordering Physician: RAVI, : :SEMAJ Performed By: Kristy Tong : :Referring: SEMAJ REYES : + + Interpretation Summary The patient was in atrial fibrillation with heart rates between 74-113 bpm during the exam. The left ventricle is mildly dilated. Left ventricular ejection fraction is estimated to be 40 +/- 5%. Compared to the prior exam, the left ventricular function is reduced. There is mild to moderate global hypokinesis of the left ventricle. The right ventricle is grossly normal size. The right ventricular systolic function is normal. There is moderate mitral regurgitation. Compared to the prior echo study, there has been an increase in the severity of mitral regurgitation. The left atrium is severely dilated. The left atrium has remained unchanged in size since the prior echo exam. There is mild to moderate tricuspid regurgitation. Compared to the prior echo exam, there has been an increase in TR severity. The right ventricular systolic pressure is estimated to be at least 32 mmHg based on an estimated right atrial pressure of 8 mm Hg. Procedure: A two-dimensional transthoracic echocardiogram with color flow and Doppler was performed. The study quality was technically adequate. Comparison is made with the echocardiogram of 05/09/2017. The patient was in atrial fibrillation with heart rates between 74-113 bpm during the exam. Left Ventricle: The left ventricle is mildly dilated. There is normal left ventricular wall thickness. There is no thrombus. Left ventricular ejection fraction is estimated to be 40 +/- 5%. Compared to the prior exam, the left ventricular function is reduced. There is mild to moderate global hypokinesis of the left ventricle. E/E' med: 9.1. Right Ventricle: The right ventricle is grossly normal size. The right ventricular systolic function is normal. Atria: The left atrium is severely dilated. The left atrium has remained unchanged in size since the prior echo exam. The right atrium is mild to moderately dilated. There is no Doppler evidence for an interatrial shunt. Mitral Valve: There is mild mitral annular calcification. There is moderate mitral regurgitation. Compared to the prior echo study, there has been an increase in the severity of mitral regurgitation. Aortic Valve: The aortic valve is trileaflet. The aortic valve opens well. There is no aortic valve stenosis. There is trace aortic regurgitation. Tricuspid Valve: The tricuspid valve is normal. There is mild to moderate tricuspid regurgitation. Compared to the prior echo exam, there has been an increase in TR severity. The right ventricular systolic pressure is estimated to be at least 32 mmHg based on an estimated right atrial pressure of 8 mm Hg. Pulmonic Valve: The pulmonic valve leaflets are thin and pliable; valve motion is normal. There is no pulmonic valvular regurgitation. Great Vessels: The aortic root is normal size. The ascending aorta is at the upper limits of normal in size. The IVC is of normal diameter and collapses greater than 50% with a sniff. This suggests a low right atrial pressure of 3 mm Hg. Pericardium/ Pleura There is no pericardial effusion. There is an anterior echo-free space consistent with a fat pad. There is no pleural effusion. MMode/2D Measurements & Calculations LVIDd: 6.0 cm LVOT diam: 2.5 cm LVIDs: 4.6 cm Ao root diam: 3.7 cm FS: 22.9 % asc Aorta Diam: 3.7 cm IVSd: 0.85 cm LVPWd: 0.81 cm LV kramer. diameter/BSA (cm/m^2): 2.4 LV sys. diameter/BSA (cm/m^2): 1.9 LA A2 area: 34.0 cm2 RA long axis: 6.9 cm LA A4 area: 28.9 cm2 RA area: 26.1 cm2 LA length (vol): 7.1 cm RA vol: 84.6 ml LA vol: 117.9 ml RA : 34.5 ml/m2 LA vol index: 48.1 ml/m2 IVC diam: 2.0 cm RVD1 (basal): 4.0 cm TAPSE: 2.0 cm Doppler Measurements & Calculations Ao V2 max: 104.4 cm/sec LVOT Max Chad: 85.7 cm/sec Ao V2 mean: 74.8 cm/sec LV V1 max P.9 mmHg Ao max P.4 mmHg LV V1 VTI: 16.4 cm Ao mean P.5 mmHg GEOVANNY(I,D): 4.2 cm2 Ao V2 VTI: 18.5 cm GEOVANNY(V,D): 3.9 cm2 sev ratio: 0.89 GEOVANNY indexed to BSA (cm^2/m^2): 1.7 MV E max chad: 82.4 cm/sec TR max chad: 243.2 cm/sec MV A max chad: 0.80 cm/sec TR max P.7 mmHg MV E/A: 102.7 PA V2 max: 89.0 cm/sec Med Peak E' Chad: 9.0 cm/sec PA V2 mean: 59.7 cm/sec E/E' med: 9.1 PA mean P.6 mmHg Lat Peak E' Chad: 14.3 cm/sec PA pr(Accel): 29.3 mmHg E/E' lat: 5.8 E/e' average: 7.4 MV dec time: 0.25 sec SV(LVOT): 77.6 ml Reading Physician:01:52 PM
== END ==
PROVIDERS: PCP Internal Medicine; Referring Provider Internal Medicine Cardiovascular Disease; Visit Provider Internal Medicine Cardiovascular Disease
DX: I08.1 Rheumatic disorders of both mitral and tricuspid valves (principal); I42.0 Dilated cardiomyopathy
CPT/HCPCS: 93306

== ENCOUNTER → 2022-12-02 09:14 | Outpatient (CLI) | payer MEDICARE, OTHER, MEDICAID, SELFPAY ==
--- NOTE | 2022-12-02 | DI.ECHO.S_ITS ---
[place] +---------+ Hospital +---------+ : : [address] : : : : [id number] : : : : Phone: [phone] +---------+ Echocardiogram Report + + :Name: JALEN GATES Study Date: 12/02/2022 Height: 75 in : :[facility] ReadingLocation: Weight: 250 lb : : Gender: Male BSA: 2.4 m2 : :: 1960 Age: 62 yrs BP: 129/91 mmHg: :Reason For Study: Chronic Systolic Heart Failure : :Ordering Physician: MARCUS, : :CYNTHIA Performed By: Sussy Martin : :Referring: CYNTHIA VELAZQUEZ : + + Interpretation Summary The left ventricle is mildly dilated. Left ventricular ejection fraction is estimated to be 50 +/- 5%. Previously, Left ventricular ejection fraction is estimated to be 40 +/- 5%. The right ventricle is at the upper limits of normal in size. The right ventricular systolic function is normal. There is mild to moderate mitral regurgitation. Previously moderate MR. There is mild to moderate tricuspid regurgitation. No significant change in TR. The right ventricular systolic pressure is estimated to be at least 30 mmHg based on an estimated right atrial pressure of 8 mm Hg. Previously 32 mmHg. The patient was in atrial fibrillation with heart rates between 74-129 bpm during the exam. Previously,the patient was in atrial fibrillation with heart rates between 74- 113 bpm during the exam. Procedure: A two-dimensional transthoracic echocardiogram with color flow and Doppler was performed. The study quality was technically difficult. Comparison is made with the echocardiogram of 12/24/2020. The patient was in atrial fibrillation with heart rates between 74-129 bpm during the exam. Left Ventricle: The left ventricle is mildly dilated. There has been no significant change since the previous study. There is no thrombus. Left ventricular ejection fraction is estimated to be 50 +/- 5%. There are no focal wall motion abnormalities. Diastolic function could not be accurately assessed due to atrial fibrillation. Right Ventricle: The right ventricle is at the upper limits of normal in size. The right ventricular systolic function is normal. Atria: The left atrium is moderately dilated. The left atrium has mildly decreased in size since the prior echo exam. The right atrium is moderately dilated. There is no Doppler evidence for an interatrial shunt. Mitral Valve: The mitral valve leaflets appear mildly thickened, but open well. There is mild mitral annular calcification. There is no mitral valve stenosis. There is mild to moderate mitral regurgitation. Aortic Valve: The aortic valve is trileaflet. The aortic valve opens well. There is no aortic valve stenosis. There is trace aortic regurgitation. Tricuspid Valve: The tricuspid valve is normal. There is no tricuspid stenosis. There is mild to moderate tricuspid regurgitation. The right ventricular systolic pressure is estimated to be at least 30 mmHg based on an estimated right atrial pressure of 8 mm Hg. Pulmonic Valve: The pulmonic valve is not well visualized. There is no pulmonic valvular stenosis. There is trace pulmonic regurgitation. Great Vessels: The aortic root is normal size. The ascending aorta is at the upper limits of normal in size. The pulmonary artery is normal size. The IVC is dilated (diameter is greater than 2.1 cm) yet it collapses greater than 50% with a sniff. This suggests a right atrial pressure of 8 mm Hg. Pericardium/ Pleura There is a trivial pericardial effusion noted. There is no pleural effusion. MMode/2D Measurements & Calculations LVIDd: 6.0 cm LVOT diam: 2.4 cm LVIDs: 4.4 cm Ao root diam: 3.4 cm FS: 26.7 % asc Aorta Diam: 3.8 cm IVSd: 1.1 cm LVPWd: 0.80 cm LV kramer. diameter/BSA (cm/m^2): 2.5 LV sys. diameter/BSA (cm/m^2): 1.8 LA A2 area: 20.3 cm2 RA long axis: 6.9 cm LA A4 area: 22.3 cm2 RA area: 24.8 cm2 LA length (vol): 6.2 cm RA vol: 75.5 ml LA vol: 62.2 ml RA : 31.3 ml/m2 LA vol index: 25.8 ml/m2 RVD1 (basal): 4.1 cm LVLs ap4: 6.7 cm LVLd ap2: 8.1 cm TAPSE_phl: 2.4 cm LVLs ap2: 6.6 cm Doppler Measurements & Calculations Ao V2 max: 131.0 cm/sec LVOT Max Chad: 101.4 cm/sec Ao V2 mean: 92.0 cm/sec LV V1 max P.1 mmHg Ao max P.0 mmHg LV V1 VTI: 18.1 cm Ao mean P.0 mmHg GEOVANNY(I,D): 3.2 cm2 Ao V2 VTI: 26.0 cm GEOVANNY(V,D): 3.5 cm2 sev ratio: 0.70 GEOVANNY indexed to BSA (cm^2/m^2): 1.3 TR max chad: 236.0 cm/sec SV(LVOT): 82.1 ml TR max P.3 mmHg AV VR_phl: 0.77 GEOVANNY(VTI)/BSA_phl: 1.3 Reading Physician:12:33 PM
[2022-12-02 10:15] LABS: Add Manual Diff / Slide Review NO; Basophils Absolute Auto 0 /uL (0-100); Basophils Percent Auto 0.6 % (0-2); Eosinophils Absolute Auto 200 /uL (0-450); Eosinophils Percent Auto 2.5 % (2-4); Hematocrit 38.3 % (41-53); Hemoglobin 13.5 g/dL (13.5-17.5); Lymphocytes Absolute Auto 800 /uL (1100-4500); Lymphocytes Percent Auto 11.5 % (25-40); Mean Corpuscular HGB Conc 35.3 % (30-36); Mean Corpuscular Hemoglobin 36.4 PG (26-34); Monocytes Absolute Auto 700 /uL (0-900); Monocytes Percent Auto 9.5 % (3-14); Neutrophils Absolute Auto 5600 /uL (1500-7000); Neutrophils Percent Auto 75.9 % (50-75); Platelet Count 245 X10^3/uL (150-400); Red Blood Cell Count 3.72 X10^6/uL (4.5-5.9); Red Cell Distribution Width 12.8 % (11.6-14.8); White Blood Cell Count 7.4 X10^3/uL (4.5-11.0)
[2022-12-02 10:33] LABS: Alanine Aminotransferase 35 IU/L (<50); Albumin 4.1 g/dL (3.5-5.0); Albumin Globulin Ratio 1.1 (1.0-2.8); Alkaline Phosphatase 107 U/L (38-126); Aspartate Aminotransferase 44 IU/L (17-59); BUN Creatinine Ratio 11.6 (6-22); Bilirubin Total 0.9 mg/dL (0.2-1.3); Blood Urea Nitrogen 8 mg/dL (9-20); Calcium 9.4 mg/dL (8.4-10.2); Carbon Dioxide 28 mmol/L (22-32); Chloride 94 mmol/L (98-107); Cholesterol 166 mg/dL (140-199); Estimated Glomerular Filt Rate > 60 mL/min (>60); Globulin 3.7 g/dL (1.7-4.1); Glucose 104 mg/dL (80-110); HDL Cholesterol 36 mg/dL (40-60); HEMOLYSIS < 15 (0-50); LDL Cholesterol Calculated 101 mg/dL (<100); Potassium 4.5 mmol/L (3.4-5.1); Sodium 131 mmol/L (137-145); Total Protein 7.8 g/dL (6.3-8.2); Triglycerides 145 mg/dL (35-150)
== END ==
PROVIDERS: Referring Provider Internal Medicine Cardiovascular Disease; Visit Provider Internal Medicine Cardiovascular Disease
DX: I08.1 Rheumatic disorders of both mitral and tricuspid valves (principal); I11.0 Hypertensive heart disease with heart failure; I50.22 Chronic systolic (congestive) heart failure; I42.0 Dilated cardiomyopathy; E78.5 Hyperlipidemia, unspecified
CPT/HCPCS: 36415; 80053; 80061; 85025; 93306

== ENCOUNTER → 2024-02-20 09:55 | Outpatient (CLI) | payer MEDICARE, MEDICAID, SELFPAY ==
--- NOTE | 2024-02-20 20:36 | DI.NM.S_ITS ---
DATE OF SERVICE: 02/20/2024 PROCEDURE: Pharmacologic vasodilator stress and rest myocardial perfusion imaging with gating to assess ejection fraction and regional wall motion. 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 CARDIAC STRESS: Per protocol, 0.4 mg of regadenoson was infused with a normal hemodynamic response with a resting heart rate of 85 BPM increasing to a maximum of 141 BPM (89% of his predicted maximum). With this, he had minimal dyspnea and no chest discomfort. His resting ECG shows atrial fibrillation with fairly normal ST segments. With stress, there is subtle ST-segment sagging in the inferolateral leads but less than 1 mm and thus nonspecific for ischemia. There were no additional arrhythmias beyond his baseline atrial fibrillation. Per protocol, 25.7 millicuries of technetium-99m Myoview was injected and he was imaged 15 minutes later using a gated SPECT acquisition protocol. Earlier in the day while at rest, he was injected with 12.5 millicuries of technetium-99m Myoview and imaged 15 minutes later, again using a gated SPECT acquisition protocol. FINDINGS: 1. Raw data: There is fairly good myocardial tracer uptake but with some evidence for diaphragmatic attenuation. The lung/heart ratio is normal at 0.35 with a normal TID ratio of 1.16. 2. Quantitated gated SPECT: Post-stress ejection fraction is estimated at 74% without any focal wall motion abnormality, and specifically, the inferior wall has normal contractility. The resting ejection fraction is 71% with a high normal resting end-diastolic volume of 110 mL. There is mildly increased tracer uptake of the right ventricular free wall with possible mild right ventricular enlargement, consistent with a possible right ventricular overload condition but clinical correlation is needed.. 3. Myocardial perfusion imaging: Post-stress supine images show a mild perfusion defect in the proximal to mid inferior wall, sparing the distal portion of the inferior wall in a pattern consistent with diaphragmatic attenuation artifact. Unfortunately, the patient was unable to lie prone to assess for this. The resting images show an identical perfusion pattern without any improvement in the inferior wall perfusion defect. IMPRESSION: 1. Probable normal myocardial perfusion study for ischemia. 2. Mild, fixed proximal to mid inferior wall perfusion defect that most likely reflects diaphragmatic attenuation artifact although prone are not available to assess for this. While previous nontransmural myocardial infarction cannot be entirely excluded, the absence of any wall motion abnormality would mitigate against this. 3. Borderline left ventricular enlargement with normal systolic function and no focal wall motion abnormality. There is mildly increased tracer uptake in the right ventricular free wall and possible right ventricular enlargement which could indicate a right ventricular overload condition, but clinical correlation is needed. 4. No angina with pharmacologic vasodilator stress and only subtle, nonspecific ST-segment abnormalities. There are no arrhythmias beyond his baseline atrial fibrillation. Tavares Augustin - NISA/ad/MOSHE doc#: [id number]/job#: [id number] dd: 02/20/2024 17:43:00 dt: 02/20/2024 20:13:00 DICTATING MD/COPIES TO: Jose J Livingston MD; PARESH Godinez; Addie Squires MD COPIES MNE: MISA; ;
== END ==
PROVIDERS: PCP Internal Medicine; Referring Provider Nurse Practitioner Acute Care; Visit Provider Nurse Practitioner Acute Care
DX: I48.21 Permanent atrial fibrillation (principal); R94.31 Abnormal electrocardiogram [ECG] [EKG]; I42.0 Dilated cardiomyopathy; I42.6 Alcoholic cardiomyopathy; R06.00 Dyspnea, unspecified
CPT/HCPCS: 78452; 93017; A9502; J2785